=== PATIENT | female | born 1955 | race Caucasian/White ===

== ENCOUNTER 2018-07-09 16:54 | Emergency (ER) | payer OTHER ==
[~2018-07-09] VITALS: Ht 157.5 cm; Wt 114.0 kg
[~2018-07-09 16:54] MED LIST: AUGMENTIN 875875 MG PO; CIPRO250 M2 PO; KEFLEX500 MG PO; LASIX 40 MG TAB40 M2 PO; LOPRESSOR25 PO; METFORMIN HCL500 MG PO; NORVASC5 M1 PO; NOVOLOG100 UNIT/1 SUBQ; PRINZIDE 20-251 EACH PO; PROTONIX40 M1 PO; TRIAMCINOLONE A80 G2 TOP; ZOCOR20 MG PO; ZOFRAN ODT4 MG PO
[2018-07-09] MEDS ORDERED: AMARYL2 MG PO (17:06)
[2018-07-09] MEDS ORDERED: ZOCOR20 MG PO (17:07)
[2018-07-09] MEDS ORDERED: LANTUS100 UNIT/M SUBQ (17:08)
[2018-07-09] MEDS ORDERED: IBUPROFEN 800800 MG PO (18:25)
[2018-07-09 18:36] VITALS: BP 126/73
== END 2018-07-09 18:36 | disposition home or self-care (01) ==
LOC: M.ERS 16:54
DX: S70.01XA Contusion of right hip, initial encounter (principal); E78.00 Pure hypercholesterolemia, unspecified; I10 Essential (primary) hypertension; E11.9 Type 2 diabetes mellitus without complications; J44.9 Chronic obstructive pulmonary disease, unspecified; Z79.4 Long term (current) use of insulin; Z88.6 Allergy status to analgesic agent; Z88.1 Allergy status to other antibiotic agents; Z88.5 Allergy status to narcotic agent; W01.0XXA Fall on same level from slipping, tripping and stumbling without subsequent striking against object, initial encounter; Y93.89 Activity, other specified; Y92.89 Other specified places as the place of occurrence of the external cause; Y99.8 Other external cause status

== ENCOUNTER 2018-07-13 19:38 | Inpatient (IN) | payer OTHER ==
[~2018-07-13] VITALS: Ht 157.5 cm; Wt 114.8 kg
[~2018-07-13 19:38] MED LIST changes: +AMARYL2 MG PO; +IBUPROFEN 800800 MG PO; +LANTUS100 UNIT/M SUBQ
[2018-07-13 19:43] VITALS: BP 158/110
[2018-07-13 20:40] LABS: HEMATOCRIT 41.4 % (37.0-47.0); MCH 30.9 pg (26.0-34.0); MCHC 33.8 g/dL (28.0-37.0); MCV 91.3 fL (80.0-100.0); MPV 11.7 fl. (7.2-11.1); NUCLEATED RBCS 0 /100WBC; RBC 4.54 mil/uL (4.20-5.00); RDW-CV 13.3 % (10.5-14.5); WBC 7.5 thou/uL (4.0-11.0)
[2018-07-13 20:42] LABS: BE 5.3 mmol/L (-2 to +3); HCO3 30.2 mmol/L (22.0-26.0); PCO2 44.9 mmHg (35.0-45.0); PO2 102.1 mmHg (75.0-100.0); pH 7.445 (7.340-7.450)
[2018-07-13 20:46] LABS: ANION GAP 4 mmol/L (7-16); BUN 8 mg/dL (7-18); CALCIUM 8.9 mg/dL (8.5-10.1); CHLORIDE 97 mmol/L (98-107); CO2 35 mmol/L (21-32); CREATININE 0.7 mg/dL (0.6-1.3); GLUCOSE 183 mg/dL (70-99); POTASSIUM 3.3 mmol/L (3.5-5.1); SODIUM 136 mmol/L (136-145)
[2018-07-13 20:49] LABS: APTT 25.6 Seconds (25.0-31.3); INR 1.1
[2018-07-13 20:53] LABS: ALBUMIN 3.6 g/dL (3.4-5.0); ALKALINE PHOSPHATASE 56 U/L (46-116); MAGNESIUM 1.4 mg/dL (1.8-2.4); SGOT 27 U/L (15-37); SGPT 39 U/L (30-65); TOTAL BILIRUBIN 0.5 mg/dL (<0.1-1.0); TOTAL PROTEIN 7.5 g/dL (6.4-8.2); TROPONIN-I LEVEL <0.06 ng/mL (<0.06)
[2018-07-13 21:05] LABS: ABSOLUTE LYMPHOCYTES 0.7 thou/uL (0.8-5.3); ABSOLUTE MONOCYTES 0.4 thou/uL (0.0-1.2); ABSOLUTE NEUTROPHILS 6.5 thou/uL (1.6-8.1); ATYPICAL LYMPHS 2 %
[2018-07-13 21:06] LABS: ANISOCYTOSIS 1+; LARGE PLATELETS FEW; OVALOCYTES Occasional; PLATELET ESTIMATE DECREASED
[2018-07-13 21:08] LABS: PLATELET COUNT* 16 thou/uL (150-400); POLYCHROMASIA Occasional
[2018-07-13 21:31] LABS: URINE BILIRUBIN NEGATIVE (Negative); URINE BLOOD NEGATIVE (Negative); URINE CLARITY CLEAR; URINE COLOR YELLOW; URINE GLUCOSE-RANDOM NEGATIVE (Negative); URINE KETONES NEGATIVE (Negative); URINE LEUKOCYTES-REFLEX TRACE (Negative); URINE NITRITE-REFLEX NEGATIVE (Negative); URINE PROTEIN NEGATIVE (Negative); URINE UROBILINOGEN 0.2 E.U./dl (0.2-1.0)
[2018-07-13 21:38] LABS: HYALINE CASTS 0-3 Few /LPF (None Seen); SQUAMOUS >10 Many /LPF (0-3)
[2018-07-13 21:39] LABS: BACTERIA-REFLEX >30 Many /HPF (None Seen); CRYSTALS None Seen /LPF (None Seen); URINE RBC 0-2 Rare /HPF (0-2); URINE WBC-REFLEX 6-15 Few /HPF (0-5)
[2018-07-13 22:50] VITALS: BP 138/80
[2018-07-13 22:51] VITALS: BP 130/74
--- NOTE | 2018-07-13 23:30 | NUR ---
RECEIVED REPORT FROM SNUFF CONTAINER INSPECTOR MARY AT 9541. PT ARRIVED TO [facility] VIA CART AT 1475. DAUGHTER AT BEDSIDE. PT TRACING SINUS RHYTHM/SINUS TACHY ON CANVAS GOODS FABRICATOR. AFEBRILE, HOME MEDICATIONS VERIFIED AND RESTARTED BY DR. HORTON. INITIAL NEGATIVE SEPSIS SCREENING.
[2018-07-14 01:03] LABS: INFLUENZA A ANTIGEN None Detected (None Detect); INFLUENZA B ANTIGEN None Detected (None Detect)
[2018-07-14] MEDS ORDERED: ACCUNEB SO1.25 MG/1 INH (01:32)
--- NOTE | 2018-07-14 02:35 | NUR ---
AT 0150, PT TEMP 101.0 F ORAL, HR IN THE 120'S. POSITIVE SEPSIS SCREENING. DR. HORTON NOTIFIED AT 0206. NO NEW ORDERS RECEIVED AT THIS TIME. ACETAMINOPHEN ADMINSTERED PER EMAR. COOL WASHCLOTHS PROVIDED.
[2018-07-14 04:13] VITALS: BP 113/63
[2018-07-14 08:00] VITALS: BP 131/81
[2018-07-14 08:12] LABS: MAGNESIUM 1.6 mg/dL (1.8-2.4); POTASSIUM 3.7 mmol/L (3.5-5.1)
[2018-07-14 10:16] LABS: ABSOLUTE LYMPHOCYTES 0.8 thou/uL (0.8-5.3); ABSOLUTE MONOCYTES 0.6 thou/uL (0.0-1.2); BASOPHILS 0.2 %; HEMATOCRIT 38.2 % (37.0-47.0); LYMPHOCYTES 10.7 %; MCH 31.2 pg (26.0-34.0); MCV 91.8 fL (80.0-100.0); MONOCYTES 8.6 %; MPV 12.4 fl. (7.2-11.1); NUCLEATED RBCS 0 /100WBC; POLYS 80.5 %; RBC 4.16 mil/uL (4.20-5.00); RDW-CV 13.2 % (10.5-14.5); WBC 7.5 thou/uL (4.0-11.0)
[2018-07-14 10:19] LABS: PLATELET COUNT* 12 thou/uL (150-400)
[2018-07-14 12:00] VITALS: BP 156/86
--- NOTE | 2018-07-14 12:36 | EKG ---
[place] [address] ELECTROCARDIOGRAM REPORT Name: PERLITA SEBASTIAN Room: [address] ADM IN M.R.#: [id number] Admission: 07/13/18 Attend Phys: Nelida Alfred Discharge: Date of : 59 Report #: [id number] THIS REPORT FOR: //name// [facility] ED Test Date: 2018-07-13 Test Time: 20:21:30 Pat Name: PERLITA SEBASTIAN Department: Room: [facility] Gender: F Senior Water/Wastewater Engineer: Kwabena GARCIA : 1955 Requested By: Sharlene Fisher Order Number: [id number] MD: Elder Faye Measurements Intervals [place] Rate: 115 P: 58 [place]: 175 QRS: -43 QRSD: 97 T: 89 QT: 337 QTc: 466 Interpretive Statements Sinus tachycardia Abnormal R-wave progression, late transition Inferior infarct, old Baseline wander in lead(s) III,aVL,V3 No previous ECG available for comparison Electronically Signed On 07-14-2018 12:36:27 CDT by Elder Faye [email or web address] <ELECTRONICALLY SIGNED> By: Elder Faye MD, FACC 07/14/18 1236 20 20 Elder Faye MD, FAC /EPI
--- NOTE | 2018-07-14 12:37 | EKG ---
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: [facility] : 1955 Requested By: Yaquelin Redmond Order Number: [id number] Reading MD: Elder Faye Measurements Intervals [place] Rate: 123 P: 47 [place]: 122 QRS: -9 QRSD: 104 T: 89 QT: 342 QTc: 490 Interpretive Statements Sinus tachycardia Multiple ventricular premature complexes Low voltage, extremity leads Borderline prolonged QT interval No previous ECG available for comparison Electronically Signed On 07-14-2018 12:36:50 CDT by Elder Faye [email or web address] <ELECTRONICALLY SIGNED> By: Elder Faye MD, [facility] 07/14/18 1236 0133 0133 Elder Faye MD, [facility] /EPI
--- NOTE | 2018-07-14 15:57 | NUR ---
Pt is A&O. Pt was asleep when CM went to assess, CM spoke with Pt's dtr via phone. Resides at home with her . Pt is independent with ADLs, continues to cook and clean. Either Pt's dtr or drive. Pt has home o2 through [facility]. No hx of HH or SNF. Goal is home at dc, dtr wants Pt to have HH. Following.
[2018-07-14 16:00] VITALS: BP 119/77
--- NOTE | 2018-07-14 19:27 | NUR ---
RECEIVED REPORT. ASSUMED CARE OF PT AROUND 0730. PT A&O X4, VSS, O2 SAT >90% ON 3L PER NC. SECOND CRUSHER IN PLACE TRACING SR TO ST WITH NO CHANGES THIS SHIFT. PT BECAME LESS TACHYCARDIC SHIFT PROGRESSED. PT REMAINED AFEBRILE THIS SHIFT. AM ASSESSMENT AND VITALS COMPLETED CHARTED. PT REPORTED HEADACHE PAIN THIS SHIFT THAT WAS MANAGED WITH PO AND IV PAIN MEDICATION WITH FULL RELIEF. FAMILY AT BEDSIDE THROUGHOUT THE SHIFT. PT REPORTED FEELINGS OF URINARY RETENTION THIS AM. BLADDER SCANNED AFTER VOIDS THIS SHIFT, SEE CHARTING. PT STATED "I FEEL LIKE I'M EMPTYING MY BLADDER MORE" THIS EVENING. PT TOLERATING DIET. PT CURRENTLY RESTING IN BED. FALL PRECAUTIONS IN PLACE. CALL LIGHT IS WITHIN REACH. HOURLY ROUNDING PERFORMED.
[2018-07-14 20:00] VITALS: BP 105/64
[2018-07-15] VITALS (7 sets, daily range): BP systolic 105–143; BP diastolic 57–90
[2018-07-15 09:13] LABS: HEMOGLOBIN 12.8 gm/dL (12.0-15.0); MCH 30.7 pg (26.0-34.0); MCHC 33.7 g/dL (28.0-37.0); MCV 91.1 fL (80.0-100.0); MPV 11.7 fl. (7.2-11.1); RBC 4.17 mil/uL (4.20-5.00); RDW-CV 13.2 % (10.5-14.5); WBC 9.8 thou/uL (4.0-11.0)
[2018-07-15 09:21] LABS: ALBUMIN 3.3 g/dL (3.4-5.0); CALCIUM 8.5 mg/dL (8.5-10.1); CREATININE 0.6 mg/dL (0.6-1.3); POTASSIUM 3.6 mmol/L (3.5-5.1); TOTAL BILIRUBIN 0.4 mg/dL (<0.1-1.0); TOTAL PROTEIN 7.4 g/dL (6.4-8.2)
--- NOTE | 2018-07-15 11:55 | NUR ---
Initial referral sent to [facility], they are able to accept Pt. DC orders will need to be faxed to [facility] [phone]. Anticipate dc tomorrow
--- NOTE | 2018-07-15 19:46 | NUR ---
RECEIVED REPORT. ASSUMED CARE OF PT AROUND 0730. PT A&O X4. VSS. O2 SAT >90% ON 2-3L PER NC. RESULTS TECHNICIAN IN PLACE TRACING SR WITH NO CHANGES THIS SHIFT. AM ASSESSMENT AND VITALS COMPLETED CHARTED. LAB CALLED WITH CRITICAL PLATELET LEVEL THIS AM - PHYSICIAN NOTIFIED, ORDERS RECEIVED. PT RECEIVED 1 UNIT OF PLATELETS THIS SHIFT WITH NO ADVERSE REACTIONS. CBC ORDERED FOR TOMORROW MORNING. PT TOLERATING DIET. UP WITH SBA TO BATHROOM SEVERAL TIMES TO VOID, OUTPUT GOOD. PVR'S LESS THAN 200 THIS SHIFT. MEDS PER EMAR. PT TEARFUL THIS SHIFT DUE TO NOT BEING ABLE TO GO HOME TODAY AND CONCERN OVER HER MEDICAL CONDITION. REASSURANCE GIVEN. FAMILY AT BEDSIDE THROUGHOUT THE SHIFT. PT REPORTED HEADACHE THIS AM THAT WAS MANAGED WITH PO PAIN MEDICATION WITH RELEIF. BLOOD GLUCOSE LEVELS ELEVATED THIS SHIFT. SLIDING SCALE INSULIN ADVANCED TO VERY HIGH DOSE, DOCTOR NOTIFIED WELL, ADDITIONAL ORDERS PUT THROUGH. PT CURRENTLY WATCHING TV IN BED. FALL PRECAUTIONS IN PLACE. CALL LIGHT IS WITHIN REACH. HOURLY ROUNDING PERFORMED.
[2018-07-16] VITALS (7 sets, daily range): BP systolic 134–177; BP diastolic 75–94
[2018-07-16 05:12] LABS: HEMATOCRIT 35.1 % (37.0-47.0); HEMOGLOBIN 11.8 gm/dL (12.0-15.0); MCH 30.9 pg (26.0-34.0); MCHC 33.6 g/dL (28.0-37.0); MCV 91.8 fL (80.0-100.0); MPV 12.4 fl. (7.2-11.1); RBC 3.83 mil/uL (4.20-5.00); RDW-CV 13.6 % (10.5-14.5); WBC 12.2 thou/uL (4.0-11.0)
--- NOTE | 2018-07-16 05:49 | NUR ---
ASSUMED CARE OF PT AFTER REPORT AT 1930. PT A&OX4. VSS. PHYSICAL ASSESSMEMT COMPLETED AND CHARTED. PT ON O2 AT 2L NC WITH 95% O2 SAT. PT TRACING SRON TELE. PT SUPPOSED TO BE UP STANBY DUE TO HISTORY OF FALL BUT REFUSED TO BE ASSISTED AND TO TURN BED ALARM ON EVEN AFTER EDUCATION. PT PROMISED TO CALL IF SHE FEELS DIZZY OR LIGHTHEADEDNESS. PT COMPLAINED OF HEADACHE WITH PAIN SCALE OF 5/10-PAIN MEDS GIVEN PER MAR WITH PARTIAL RELIEF. PT ALSO COMPLAINED OF INDIGESTION-DR GARCIA INFORMED WITH NO NEW ORDER. AFTER A WHILE, PT CLAIMED HER STOMACH IS NOT UPSET ANYMORE.BLOOD SUGAR 408 MG/DL. INSULIN LISPRO SLIDING SCALE AND LANTUS GIVEN ORDERED. PHARMACY CALLED VERIFYING REGARDING INSULIN REGULAR 20 UNITS IV PUSH ONETIME. RECHECKED BLOOD SUGAR AT 0100. BLOOD SUGAR WENT DOWN TO 264 MG/DL. OPTICAL INSTRUMENTS SUPERVISOR LISA VERIFIED REGULAR INSULIN ORDERED TO DR HORTON. NO NEW ORDERS RECIEVED. WILL PASS THIS TO INCOMING SHIFT. RECHECKED BLOOD SUGAR AGAIN AT 0530.BLOOD SUGAR IS 262 MG/DL. CALL LIGHT WITHIN REACH. BED IN LOW POSITION.
--- NOTE | 2018-07-16 08:00 | NUR ---
RECIEVED REPORT. ASSUMED CARE OF PT AT 0730. VSS. CARDIAC MONTIORING IN PLACE SR. AM ASSESSMENT AND VITALS COMPLETED CHARTED. PT ALERT AND ORIENTED. PT ON 2L PER NC. PT REPORTS SHE WEARS O2 AT HOME. PT DENIES ANY COMPLAINTS OF PAIN OR DISCOMFORT THIS AM. PT REPORTS FEELING MUCH BETTER. IV SALINE LOCKED. PT SITTING UP IN BED. PT INFORMED OF PLAN OF CARE. CALL LIGHT IS WITHIN REACH. WILL CONTINUE TO MONTIOR FOR DURATION OF SHIFT.
--- NOTE | 2018-07-16 17:30 | NUR ---
VSS. CARDIAC MONTORING IN PLACE WITH NO CHANGES THIS SHIFT. PT REMAINS ON 2L PER NC. PT HAS COMPLAINTS OF ANXIETY AND HEADACHE ASSOCIATED WITH DECADRON DRIP. DRIP TEMPORARILY STOPPED AND IV BENADRYL GIVEN WITH RELIEF. DECADRON RESTARTED WITH NO ISSUES. PT'S PAIN WELL MANAGED WITH PO PAIN MEDS. PT IS UP AD DESTINEE. CALL LIGHT IS WITHIN REACH. WILL CONTINUE TO MONITOR FOR DUATION OF SHFIT.
[2018-07-17 00:50] VITALS: BP 167/86
[2018-07-17 04:00] VITALS: BP 144/86
[2018-07-17 04:43] LABS: ABSOLUTE LYMPHOCYTES 1.5 thou/uL (0.8-5.3); ABSOLUTE NEUTROPHILS 7.5 thou/uL (1.6-8.1); BASOPHILS 0.1 %; LYMPHOCYTES 15.4 %; MCH 30.7 pg (26.0-34.0); MCHC 33.4 g/dL (28.0-37.0); MCV 92.1 fL (80.0-100.0); MONOCYTES 9.6 %; MPV 9.9 fl. (7.2-11.1); NUCLEATED RBCS 0 /100WBC; POLYS 74.9 %; RBC 3.91 mil/uL (4.20-5.00); RDW-CV 13.5 % (10.5-14.5)
--- NOTE | 2018-07-17 04:55 | NUR ---
ASSUMED CARE OF PT AFTER REPORT AT 1930. PT A&OX4. VSS. PHYSICAL ASSESSMENT COMPLETED AND CHARTED. PT ON O2 AT 2L WITH 96% O2 SAT. PT TRACING SR/SB/PVCS ON TELE. PT SUPPOSED TO BE UP STANDBY DUE TO HX OF FALL BUT REFUSED TO BE ASISTED AND TO TURN BED ALARM ON EVEN AFTER EDUCATION WAS DONE. PT PROMISES TO CALL IF SHE FEELS DIZZY OR LIGHTHEADEDNESS. PT COMPLAINED OF HEADACHE WITH PAIN SCALE OF 5/10-DENIES ANY PAIN MEDS. HOURLY ROUNDING OBSERVED. CALL LIGHT WITHIN REACH. BED IN LOW POSITION. BED ALARM ON.
[2018-07-17 05:01] LABS: PLATELET COUNT* 34 thou/uL (150-400)
[2018-07-17 05:22] LABS: ALBUMIN 3.2 g/dL (3.4-5.0); CALCIUM 8.8 mg/dL (8.5-10.1); CREATININE 0.7 mg/dL (0.6-1.3); MAGNESIUM 1.9 mg/dL (1.8-2.4); POTASSIUM 3.4 mmol/L (3.5-5.1); TOTAL BILIRUBIN 0.2 mg/dL (<0.1-1.0); TOTAL PROTEIN 6.4 g/dL (6.4-8.2)
[2018-07-17 07:46] VITALS: BP 116/65
--- NOTE | 2018-07-17 08:00 | NUR ---
RECIEVED REPORT. ASSUMED CARE OF PT AT 0730. VSS. CARDIAC MONITORING IN PLACE SR. AM ASSESSMENT AND VITALS COMPLETED CHARTED. PT ALERT AND ORIETNED. PT ON 2L. IV SALINE LOCKED. PT DENIES ANY PAIN THIS AM. PT EMOTIONAL REGARDING OUTPATIENT FOLLOW UP. REASSURANCE GIVEN. PROVIDED PT WITH SCHEDULED FOLLOW UP APPOINTMENT WITH DR. VALVERDE 07/19/18 AT 0845. PT UP AD DESTINEE. CALL LIGHT IS WITHIN REACH. WILL CONTINUE TO MONITOR FOR DURATION OF SHIFT.
[2018-07-17 12:01] VITALS: BP 147/67
--- NOTE | 2018-07-17 17:08 | NUR ---
VSS. PT MADE MED-SURG STATUS. PT REMAINS ON 2L PER NC. IV SALINE LOCKED. PT HAS HAD NO COMPLAINTS OF PAIN OR DISCOMFORT THIS SHIFT. PT IS UP AD DESTINEE. PT PROGRESSING TOWARDS GOALS. PLAN TO HAVE LAST DECADRON TRANSFUSION AND DISCAHRGE IN AM. PT COMMUNICATE UNDERSTANDING. CALL LIGHT IS WITHIN REACH. WILL CONTINUE TO MONTIOR FOR DURAITON OF SHIFT.
[2018-07-17 20:20] VITALS: BP 141/79
[2018-07-18 04:55] LABS: HEMATOCRIT 35.5 % (37.0-47.0); MCHC 33.8 g/dL (28.0-37.0); MCV 91.8 fL (80.0-100.0); RBC 3.87 mil/uL (4.20-5.00); RDW-CV 13.4 % (10.5-14.5); WBC 10.8 thou/uL (4.0-11.0)
[2018-07-18 05:18] LABS: ALBUMIN 3.2 g/dL (3.4-5.0); CALCIUM 8.9 mg/dL (8.5-10.1); CREATININE 0.7 mg/dL (0.6-1.3); MAGNESIUM 1.8 mg/dL (1.8-2.4); POTASSIUM 3.8 mmol/L (3.5-5.1); TOTAL BILIRUBIN 0.2 mg/dL (<0.1-1.0); TOTAL PROTEIN 6.3 g/dL (6.4-8.2)
--- NOTE | 2018-07-18 05:54 | NUR ---
PT ALERT AND ORIENTED X4 ON 2L O2 VIA NC AND NOT ON CARDIAC MONITORING. PT STATES SHE IS FEELING BETTER AND IS READY TO BE DISCHARGED.
--- NOTE | 2018-07-18 06:04 | NUR ---
THIS RN AGREES WITH CHARTING AND ASSESSMENT OF [facility] STUDENT JM GIPSON.
[2018-07-18 08:07] VITALS: BP 157/81
--- NOTE | 2018-07-18 10:17 | NUR ---
ASSUMED CARE OF PT THIS AM AROUND 714- MS STATUS IN PLACE AND MAINTAINED- UPON ASSESSMENT PT NOTED TO BE SITTING UP ON SIDE OF BED, FAMILY AT SIDE VISITING- PT A&O X4-CONTINENT OF BOWEL AND BLADDER- UP AD-DESTINEE WITH STEADY GAIT NOTED-LCTA, RESP EVEN AND UN-LABORED- VSS, O2 SAT 98% ON 2L VIA NC- SOA WITH ACTIVITY NOTED- ABODME SOFT/OBESE/NON-TENDER, BS X4 QUADS- LAST BM REPORTED 07/17/18- IV NOTED TO RIGHT WRIST INTACT, IV ABT GIVEN THIS AM PRESCRIBED AND IV DEXMETHOSONE INFUSSING PRESCIBED, BENADRYL GIVEN PRIOR TO ADMINISTRATION REQUESTED- GOOD PO INTAKE NOTED THIS AM WITH BREAKFAST- BS MONITORED ORDERED, SSI AND SCHEDULED INSULIN GIVEN PRESCIBED-PT DENIES ANY C/O PAIN/DISCOMFORT AT THIS TIME- EXPRESSES WISHES TO TERRENCE D/C'D THIS SHIFT- CALL LIGHT AND PERSONLA BELONGINGS WITH IN REACH- PT MAKES NEEDS KNOWN, ALL NEEDS MET AT THIS TIME-WCTM
[2018-07-18] MEDS ORDERED: CEFDINIR300 MG PO (10:44)
--- NOTE | 2018-07-18 12:48 | NUR ---
Nutrition; Pt seen for high BMI, 46.3. Pt was just getting up to go to bathroom when I entered. was in room as well. Pt denied any nutrition concerns. Wt: 253#. Will defer further nutrition assessment.
--- NOTE | 2018-07-18 13:01 | CON ---
[address] [address] CONSULTATION Name: PERLITA SEBASTIAN Room: [address] IN M.R.#: [id number] Admission: 07/13/18 Attend Phys: Nelida Alfred Discharge: Date of : 59 Report #: [id number] THIS REPORT FOR: //name// CC: Brenda Redmond DATE OF SERVICE: 07/14/2018 PRIMARY CARE PHYSICIAN: Unknown. REASON FOR CONSULTATION: Thrombocytopenia. HISTORY OF PRESENT ILLNESS: The patient is a very pleasant 62-year-old female who gives a history of longstanding ITP diagnosed approximately 20 years ago. The patient used to follow with a local superintendent gas distribution on [place] who has since retired and has not seen a superintendent gas distribution for several years now. The patient says that her platelet count usually runs in the 20,000-30,000 range. The patient is admitted in the hospital currently with complaint of malaise, fatigue and fevers. The patient had a CBC done in the Emergency Room yesterday, which showed platelet count decreased at 16. Her WBC count was 7.5 and hemoglobin and hematocrit were 14.0 and 41.4 suggesting absence of any bleed. The patient's mean platelet volume was elevated at 12.4 today. Today, her CBC shows some decrease in her platelet count down to 12 overnight. Her WBC differential was within normal limits. Complete metabolic profile showed normal renal and hepatic function with total bilirubin level of 0.5. The patient's electrolytes were otherwise normal and troponin was negative x 1. The patient's urinalysis did show multiple bacteria and epithelial cells with leukocyte esterase positive as well and absence of any microscopic hematuria. Influenza type A and B were tested negative. PT and PTT were found to be normal at 11.0 and 25.6 respectively. Hematology was consulted for further evaluation and recommendations. The patient does not complain of any bleeding from the nose or gums or from any other body site. She also does not complain of any bruising or hematomas or any other signs of bleeding. She denies having any headaches, dizziness, nausea, vomiting, constipation, diarrhea, chest pain, palpitations, or other significant symptoms at this time. PAST MEDICAL HISTORY: 1. ITP. 2. CHF. 3. IDDM. 4. COPD. 5. Hypertension. 6. [place] [address] CONSULTATION Name: PERLITA SEBASTIAN Room: [address]#: [id number] Admission: 07/13/18 Attend Phys: Nelida Alfred Discharge: Date of : 59 Report #: [id number] PAST SURGICAL HISTORY: Hysterectomy several years ago. PERSONAL HISTORY: The patient quit smoking 10 years ago. She does not use alcohol or any other illicit drugs. FAMILY HISTORY: The patient's brother also has a history of ITP. She denies having any family history of cancers or other hematologic disorders. ALLERGIES: 1. MORPHINE 2. CODEINE. 3. ASPIRIN. 4. ERYTHROMYCIN. CURRENT MEDICATIONS: 1. Lipitor 20 mg p.o. every evening. 2. Insulin Humalog q.a.c. and at bedtime. 3. Ultram 50 mg p.o. q.4 hours as needed. 4. Solu-Medrol 62.5 mg q.8 hours IV push. 5. Rocephin 1 gram IV daily. 6. Lopressor 25 mg p.o. daily. 7. Lisinopril 20 mg p.o. daily. 8. Hydrochlorothiazide 25 mg p.o. daily. 9. Lasix 40 mg p.o. daily. 10. Norvasc 5 mg p.o. daily. 11. Metformin 500 mg p.o. b.i.d. 12. Insulin Lantus subcutaneously as directed. 13. Protonix 40 mg p.o. daily. 14. Glimepiride 2 mg p.o. daily. 15. Tylenol 650 mg p.o. q. 4 hours as needed. 16. Electrolyte replacements as needed. REVIEW OF SYSTEMS: A 13-point review of systems is obtained. These were negative for any findings except for those discussed in the HPI. PHYSICAL EXAMINATION: VITAL SIGNS: T-max 38.4 and current temperature 37.4, pulse was 108 beats per minute, respiratory rate was 18 breaths per minute, blood pressure 119/77 mmHg with pulse ox of 97% on 2 liters nasal cannula. GENERAL: Awake, alert, oriented x 3, no apparent distress. HEENT: EOMI/PERRL. LYMPHATIC: No lymphadenopathy in the neck or supraclavicular areas. CHEST: Clear bilaterally with no added sounds. CARDIOVASCULAR: Regular rate and rhythm without any murmurs. ABDOMEN: Soft, bowel sounds positive. Spleen palpable in the left upper [facility] [address] [place] [address] CONSULTATION Name: PERLITA SEBASTIAN Room: [address] IN [facility].#: [id number] Admission: 07/13/18 Attend Phys: Nelida Alfred Discharge: Date of : 59 Report #: [id number] quadrant measuring 4 fingerbreadths. MUSCULOSKELETAL: No significant arthropathy visible, gait not assessed. NEUROLOGIC: No evidence of any focal neurological deficit. INTEGUMENTARY: No evidence of rash or other skin changes. ASSESSMENT AND PLAN: The patient is a very pleasant 62-year-old female who has a history of longstanding idiopathic thrombocytopenic purpura for approximately 20-30 years. The patient gives a history of being previously treated with steroids, IVIG and rituximab. She was offered splenectomy on one occasion and she refused. She does not remember being treated with Nplate. I will plan to rule out any other causes of thrombocytopenia at this time including disseminated intravascular coagulation, which does not seem likely as her coags are normal. We will check fibrinogen level, however. I will also rule out hemolysis and will review her peripheral smear for evaluation of her red blood cells to rule out thrombotic microangiopathy. The patient also denies having started any new medications recently. The patient was started on Solu-Medrol in house, which I would recommend to continue. I would also recommend to keep her platelet count above 10,000 to decrease the risk of spontaneous intracranial hemorrhage. The patient will need outpatient followup with Hematology and possible options were discussed with her today. Thank you for allowing us to participate in care of this pleasant patient. <ELECTRONICALLY SIGNED> By: Edmund Scales MD 07/18/18 1301 1711 1256Syed Felipe Ta MD /nt
[2018-07-18 13:16] VITALS: BP 134/79
--- NOTE | 2018-07-18 14:10 | NUR ---
ORDERS RECIEVED THIS SHIFT PER FOR OKAY TO D/C AND TO VERIFY WITH DR HERNANDEZ IF PREDNISONE TAPER IS NEEDED- HERE AND STATES PT DOES NOT NEED TAPER AT TIME OF D/C AND PT IS TO F/U [facility] 07/19/18 AT 0900 SCHEDULED AND F/U LABS WILL BE DRAWN-DEX IV COMPLETED PRIOR TO D/C INDICATED- IV TO RIGHT HAND D/C'D PRIOR TO D/C- D/C TEACHING/EDUCATION PRIOR TO D/C WITH ALL QUESTIONS AND CONCERNS ADDRESSED PRIOR TO D/C- NEED F/U COMMNICATED WITH VERBAL UNDERSTANDING COMMUNICATED PER PT- WRITEN EDUCATION ALONG WITH SCRIPT PROVIDED TO PT PRIOR TO D/C- BELONGINGS PACKED AND ACCOUNTED FOR PER PT- PT ESCORTED PER TECH VIA W/C TO [facility] AT 1414- NO PROBLEMS TO NOTE AT TIME OF D/C
--- NOTE | 2018-07-18 14:57 | NUR ---
Pt discharged to home today, faxed dc orders to [facility] . Cm provided Pt with inhome care agency info for her
== END 2018-07-18 14:14 | disposition home health service (06) | DRG 813 ==
LOC: M.ERS 19:38 → M.TBA-ER 21:53 → M.2W 21:53
PROVIDERS: Family Medicine; Internal Medicine; Internal Medicine Hematology & Oncology; Personal Emergency Response Attendant; ADMIT Internal Medicine
PROC: 30233R1 Transfusion of Nonautologous Platelets into Peripheral Vein, Percutaneous Approach (ICD-10-PCS; principal; 2018-07-15)
DX: D69.3 Immune thrombocytopenic purpura (principal); N39.0 Urinary tract infection, site not specified; R65.10 Systemic inflammatory response syndrome (SIRS) of non-infectious origin without acute organ dysfunction; J44.9 Chronic obstructive pulmonary disease, unspecified; E11.9 Type 2 diabetes mellitus without complications; E78.00 Pure hypercholesterolemia, unspecified; I11.0 Hypertensive heart disease with heart failure; I50.9 Heart failure, unspecified; E83.42 Hypomagnesemia; E87.6 Hypokalemia; Z88.1 Allergy status to other antibiotic agents; Z88.8 Allergy status to other drugs, medicaments and biological substances; Z79.84 Long term (current) use of oral hypoglycemic drugs; Z79.4 Long term (current) use of insulin; Z79.899 Other long term (current) drug therapy; Z87.891 Personal history of nicotine dependence; Z90.710 Acquired absence of both cervix and uterus

== ENCOUNTER → 2018-07-19 | Outpatient (CLI) | payer OTHER ==
[~2018-07-19] MED LIST changes: +ACCUNEB SO1.25 MG/1 INH; +CEFDINIR300 MG PO
[2018-07-19 10:23] LABS: HEMATOCRIT 38.4 % (37.0-47.0); HEMOGLOBIN 12.8 gm/dL (12.0-15.0); MCH 30.4 pg (26.0-34.0); MCHC 33.2 g/dL (28.0-37.0); MCV 91.4 fL (80.0-100.0); MPV 11.5 fl. (7.2-11.1); NUCLEATED RBCS 0 /100WBC; RBC 4.21 mil/uL (4.20-5.00); RDW-CV 13.4 % (10.5-14.5); WBC 15.2 thou/uL (4.0-11.0)
[2018-07-19 10:35] LABS: PLATELET COUNT* 42 thou/uL (150-400)
[2018-07-19 10:58] LABS: ABSOLUTE LYMPHOCYTES 2.6 thou/uL (0.8-5.3); ABSOLUTE MONOCYTES 0.5 thou/uL (0.0-1.2); ABSOLUTE NEUTROPHILS 12.2 thou/uL (1.6-8.1); MYELOCYTES 1 %; PLATELET ESTIMATE DECREASED
[2018-07-19 10:59] LABS: ANISOCYTOSIS 1+; POIKILOCYTOSIS 1+
[2018-07-20 07:05] LABS: HEPATITIS B SURFACE AG Negative (Negative)
--- NOTE | 2018-07-24 21:22 | HEMONC ---
[address] [address] HEMATOLOGY ONCOLOGY NOTE Name: ROMULOPERLITA J Room: [facility]#: [id number] Admission: 07/19/18 Attend Phys: Edmund Scales MD Discharge: Date of : 59 Report #: [id number] THIS REPORT FOR: //name// CC: Brenda Scales DATE OF SERVICE: 07/19/2018 DIAGNOSIS: Immune thrombocytopenia. SUBJECTIVE: The patient presented today after she was discharged from the hospital. She finished 4 doses of 40 mg dexamethasone. Upon discharge, her platelet counts were 39. The patient is feeling significantly better during this point after she got discharged. She denies any epistaxis or gum bleed. She denies any diarrhea or black stool. No hematuria. She denies any red dots or skin changes. REVIEW OF SYSTEMS: All systems were reviewed, was negative except the above. PAST MEDICAL, SOCIAL AND FAMILY HISTORY: Unchanged from last visit. PHYSICAL EXAMINATION: VITAL SIGNS: Today, blood pressure is 146/73, pulse is 78, respirations 22, temperature is 97.5, saturation is 98%. GENERAL: The patient was sitting in chair. She was not in acute distress. LUNGS: Clear to auscultations bilaterally. HEART: Regular rate and rhythm. S1, S2 within normal limits. ABDOMEN: Soft, nontender, nondistended, bowel sounds positive. MEDICATIONS: List has been reviewed. LABORATORY DATA: On 07/18/2018, WBC 10.8, hemoglobin 12.0, platelets 39 yesterday. ASSESSMENT AND PLAN: A 62-year-old female who has been diagnosed with immune thrombocytopenia more than 20 years ago. She presented to the hospital with a platelet count of 12,000. She received 4 doses of dexamethasone. Her platelets upon discharge yesterday was 39. At this point, she denies any active bleeding. RECOMMENDATIONS: I would like to continue to monitor the platelets trend. We will check CBC today and also on 07/22/2018, if her platelet count remains above 30-40 thousand, we will continue to monitor. I [place] [address] HEMATOLOGY ONCOLOGY NOTE Name: PERLITA SEBASTIAN [id number] Admission: 07/19/18 Attend Phys: Edmund Scales MD Discharge: Date of : 59 Report #: [id number] case she had drop in her platelets and require treatments, the next step will be IVIG or rituximab. All questions have been answered. <ELECTRONICALLY SIGNED> By: Edmund Scales MD 07/24/18 2122 0940 0111Edmund Scales MD /nt
== END ==
LOC: M.RTH 04:49 → M.LAB 04:49 → M.RTH 09:00
PROVIDERS: Internal Medicine
DX: D69.3 Immune thrombocytopenic purpura (principal)

== ENCOUNTER → 2018-07-22 | Outpatient (CLI) | payer OTHER ==
[2018-07-22 14:25] LABS: ABSOLUTE EOSINOPHILS 0.3 thou/uL (0.0-0.7); ABSOLUTE MONOCYTES 0.8 thou/uL (0.0-1.2); ABSOLUTE NEUTROPHILS 9.1 thou/uL (1.6-8.1); BASOPHILS 0.3 %; EOSINOPHILS 2.6 %; HEMATOCRIT 41.6 % (37.0-47.0); HEMOGLOBIN 13.7 gm/dL (12.0-15.0); LYMPHOCYTES 22.6 %; MCH 30.5 pg (26.0-34.0); MCHC 32.8 g/dL (28.0-37.0); MCV 92.8 fL (80.0-100.0); MONOCYTES 6.1 %; MPV 15.6 fl. (7.2-11.1); NUCLEATED RBCS 0 /100WBC; PLATELET COUNT* 52 thou/uL (150-400); POLYS 68.4 %; RBC 4.49 mil/uL (4.20-5.00); RDW-CV 13.9 % (10.5-14.5); WBC 13.3 thou/uL (4.0-11.0)
[2018-07-22 15:00] LABS: HYPOCHROMASIA 1+
== END ==
LOC: M.LAB 13:54
PROVIDERS: Internal Medicine
DX: D69.3 Immune thrombocytopenic purpura (principal)

== ENCOUNTER → 2018-08-08 | Outpatient (CLI) | payer OTHER ==
[2018-08-08 15:52] LABS: HEMATOCRIT 38.2 % (37.0-47.0); HEMOGLOBIN 12.9 gm/dL (12.0-15.0); MCHC 33.8 g/dL (28.0-37.0); MCV 91.7 fL (80.0-100.0); RBC 4.17 mil/uL (4.20-5.00); RDW-CV 13.7 % (10.5-14.5); WBC 7.4 thou/uL (4.0-11.0)
[2018-08-08 16:30] LABS: MPV 15.5 fl. (7.2-11.1)
== END ==
LOC: M.LAB 15:42
PROVIDERS: Internal Medicine
DX: D69.3 Immune thrombocytopenic purpura (principal)

== ENCOUNTER → 2018-08-09 | Outpatient (CLI) | payer OTHER ==
--- NOTE | ~2018-08-09 | HEMONC ---
[address] [address] HEMATOLOGY ONCOLOGY NOTE Name: PERLITA SEBASTIAN [place] Room: [facility]#: [id number] Admission: 08/09/18 Attend Phys: Edmund Scales MD Discharge: Date of : 59 Report #: [id number] THIS REPORT FOR: //name// CC: Brenda Scales DATE OF SERVICE: 08/09/2018 DIAGNOSIS: Idiopathic thrombocytopenic purpura. SUBJECTIVE: The patient presented today as a followup after she received 4 doses of dexamethasone 40 mg back in the end of June. She has been feeling tired; however, her platelet count remained stable, ranging between 39-42-52, 36 yesterday. The patient denies any major bleed. She has a very tiny epistaxis since she has been having to wear oxygen 12/04. REVIEW OF SYSTEMS: All systems were reviewed. It was negative except the above. PAST MEDICAL HISTORY, SOCIAL HISTORY, FAMILY HISTORY: Unchanged from previous visit. PHYSICAL EXAMINATION: VITAL SIGNS: Today, blood pressure is 159/84, pulse is 77, respirations 24, temperature is 97.4, saturations 95% on 2 liters. GENERAL: The patient was sitting in chair, was not in acute distress. LUNGS: Clear to auscultations bilaterally. HEART: Regular rate and rhythm. S1, S2 within normal limits. ABDOMEN: Soft, nontender, nondistended. Bowel sounds positive. ASSESSMENT AND PLAN: A 62-year-old female, diagnosed with immune cytopenia more than 20 years ago. The patient received 4 doses of dexamethasone towards the end of June since her platelets were 12. So far, after 4 weeks, her platelets remain stable, most recently 36,000 with no major bleed. I do recommend to continue to monitor the patient at this point with no active treatment since her platelet count is above 30,000. We will check platelet count every 2 weeks x 4. Follow up in 6 weeks. By: 0949 1100Edmund Scales MD /ranjith
== END ==
LOC: M.RTH 03:16
DX: D69.3 Immune thrombocytopenic purpura (principal)

== ENCOUNTER → 2018-10-06 | Outpatient (CLI) | payer OTHER ==
[2018-10-06 11:27] LABS: ABSOLUTE EOSINOPHILS 0.1 thou/uL (0.0-0.7); ABSOLUTE LYMPHOCYTES 1.7 thou/uL (0.8-5.3); ABSOLUTE MONOCYTES 0.9 thou/uL (0.0-1.2); ABSOLUTE NEUTROPHILS 4.7 thou/uL (1.6-8.1); BASOPHILS 0.4 %; EOSINOPHILS 1.5 %; HEMATOCRIT 36.4 % (37.0-47.0); HEMOGLOBIN 12.3 gm/dL (12.0-15.0); LYMPHOCYTES 22.7 %; MCH 30.8 pg (26.0-34.0); MCHC 33.9 g/dL (28.0-37.0); MCV 90.8 fL (80.0-100.0); MONOCYTES 12.5 %; MPV 11.9 fl. (7.2-11.1); NUCLEATED RBCS 0 /100WBC; POLYS 62.9 %; RBC 4.01 mil/uL (4.20-5.00); RDW-CV 13.7 % (10.5-14.5); WBC 7.5 thou/uL (4.0-11.0)
[2018-10-06 11:41] LABS: PLATELET COUNT* 16 thou/uL (150-400)
== END ==
LOC: M.LAB 11:04
PROVIDERS: Internal Medicine
DX: D69.3 Immune thrombocytopenic purpura (principal)

== ENCOUNTER → 2018-10-11 | Outpatient (CLI) | payer OTHER ==
--- NOTE | ~2018-10-11 | HEMONC ---
[address] [address] HEMATOLOGY ONCOLOGY NOTE Name: PERLITA SEBASTIAN [place] Room: [facility]#: [id number] Admission: 10/11/18 Attend Phys: Edmund Scales MD Discharge: Date of : 59 Report #: [id number] THIS REPORT FOR: //name// CC: Brenda Scales DATE OF SERVICE: 10/11/2018 DIAGNOSIS: Refractory immune thrombocytopenia. SUBJECTIVE: The patient presented today as a follow up. In August, she had a platelet count of 26,000. She was given dexamethasone for 4 days; however, repeated platelet count came back as 16. The patient reported that she has a mild epistaxis. Otherwise, she denies any other symptoms. She was started on a new medication for diabetes, Trulicity. Otherwise, she denies any acute complaints. REVIEW OF SYSTEMS: All systems reviewed, was negative except as above. PAST MEDICAL, SOCIAL, AND FAMILY HISTORY: Unchanged from previous visit. PHYSICAL EXAMINATION: VITAL SIGNS TODAY: Blood pressure was 134/83, pulse was 87, respirations 24, temperature was 97.0, pulse was 98% on room air. GENERAL: The patient was sitting in chair, was not in acute distress. LUNGS: Clear to auscultations bilaterally. HEART: Regular rate and rhythm. S1, S2 within normal limits. ASSESSMENT AND PLAN: A 62-year-old female who has been diagnosed with persistent immune thrombocytopenia. At this point, the patient is not responding to dexamethasone anymore. We will move on and arrange for IVIG. I would like to repeat her platelet counts. After that if the patient does not have any good response to IVIG, the next step will be rituximab weekly for 4 doses. By: 1208 1311Edmund Scales MD /nt
== END ==
LOC: M.RTH 04:11
DX: D69.3 Immune thrombocytopenic purpura (principal)

== ENCOUNTER → 2018-10-13 | Outpatient (CLI) | payer OTHER ==
--- NOTE | 2018-10-13 10:00 | NUR ---
ASSUMED CARE OFPATINET FROM HOME. PT IS ALERT AND ORIENTATED, SHE HAS NO CO OF PAIN OR NAUSEA AT THIS TIME. SHE WAS EDUCATED ON PLAN OF CARE AND DISEASE PROCESS. SHE IS STEADY ON HER FEET AND UP AD DESTINEE TO THE BATHROOM. LUNCH WAS ORDERED, WILL CONTINUE TO MONITOR.
[2018-10-13 10:10] VITALS: BP 146/74
[2018-10-13 11:20] VITALS: BP 142/78
[2018-10-13 12:20] VITALS: BP 134/76
[2018-10-13 14:30] VITALS: BP 132/74
--- NOTE | 2018-10-13 15:22 | NUR ---
ARRIVED AMBULATORY. MADE SELF COMFORTABLE IN RECLINER. IV STARTED WITH OUT DIFFICULTY. STATEDHAS HAD IVIG IN PAST WITH NO REACTION. IVIG INFUSION COMPLETED AND TOLERATED WELL. DENIES QUESTIONS OR NEEDS AT DISCHARGE.
== END ==
LOC: M.INFUS 05:15
DX: D69.3 Immune thrombocytopenic purpura (principal)

== ENCOUNTER → 2018-10-17 | Outpatient (CLI) | payer OTHER ==
[2018-10-17 13:43] LABS: ABSOLUTE BASOPHILS 0.1 thou/uL (0.0-0.2); ABSOLUTE EOSINOPHILS 0.2 thou/uL (0.0-0.7); ABSOLUTE LYMPHOCYTES 2.7 thou/uL (0.8-5.3); ABSOLUTE MONOCYTES 0.5 thou/uL (0.0-1.2); ABSOLUTE NEUTROPHILS 6.6 thou/uL (1.6-8.1); BASOPHILS 0.6 %; EOSINOPHILS 1.8 %; HEMATOCRIT 39.4 % (37.0-47.0); HEMOGLOBIN 13.4 gm/dL (12.0-15.0); LYMPHOCYTES 26.6 %; MCH 30.7 pg (26.0-34.0); MCV 90.5 fL (80.0-100.0); MONOCYTES 5.3 %; MPV 15.1 fl. (7.2-11.1); NUCLEATED RBCS 0 /100WBC; POLYS 65.7 %; RBC 4.35 mil/uL (4.20-5.00); RDW-CV 14.2 % (10.5-14.5)
[2018-10-17 14:24] LABS: PLATELET COUNT* 61 thou/uL (150-400)
== END ==
LOC: M.LAB 13:22
PROVIDERS: Internal Medicine
DX: D69.3 Immune thrombocytopenic purpura (principal)

== ENCOUNTER → 2018-11-15 | Outpatient (CLI) | payer OTHER ==
--- NOTE | 2018-11-16 15:44 | HEMONC ---
[address] [address] HEMATOLOGY ONCOLOGY NOTE Name: SEBASTIANPERLITA AILIN Room: [facility] LalitoVern#: [id number] Admission: 11/15/18 Attend Phys: Edmund Scales MD Discharge: Date of : 59 Report #: [id number] THIS REPORT FOR: //name// CC: Brenda Nadia Scales DATE OF SERVICE: 11/15/2018 REASON FOR CONSULTATION: Refractory thrombocytopenia. SUBJECTIVE: The patient presented today as 6 weeks followup. I have been monitoring her platelet count. Last visit she received IVIG. Platelet count recovered to 61,000. However, in the last three weeks, it has been stable, ranging between 33,000-35,000. The patient denies any bleeding including epistaxis, gum bleed, hematuria or purpura. She continues to be on a B12 supplement. REVIEW OF SYSTEMS: All systems reviewed. It was negative except the above. PAST MEDICAL, SOCIAL, FAMILY HISTORY: Unchanged from previous visit. VITAL SIGNS: Today, blood pressure is 167/81, pulse is 77, respirations 24, temperature is 97.9, saturations 98% on room air. MEDICATIONS: List has been reviewed. PHYSICAL EXAMINATION: GENERAL: The patient was sitting in chair, was not in acute distress. LUNGS: Clear to auscultation bilaterally. HEART: Regular rate and rhythm. S1, S2 within normal limits. EXTREMITIES: +1 edema bilaterally. No purpura. LABORATORY DATA: Most recent labs on platelet count on 10/17/2018 was 61,000; 10/31/2018, [address]; 11/07/2018, 37,000; 11/14/2018, 35,000. ASSESSMENT AND PLAN: A 62-year-old female who has been diagnosed with refractory ITP. The patient treated with this dexamethasone and IVIG. She had modest response; however, at this point, her platelet count has been stabilized above 30,000. She does not have any active bleeding or purpura. RECOMMENDATIONS: I would like to continue to monitor the patient's platelet count periodically every 3 weeks and if platelet counts trend below 30,000, [place] [address] HEMATOLOGY ONCOLOGY NOTE Name: PERLITA SEBASTIAN [id number] Admission: 11/15/18 Attend Phys: Edmund Scales MD Discharge: Date of : 59 Report #: [id number] discussed with the patient the next treatment will be a pulse dose of steroids and rituximab. After that, we will consider Promacta or Nplate. <ELECTRONICALLY SIGNED> By: Edmund Scales MD 11/16/18 1544 1109 2311Edmund Scales MD /nt
== END ==
LOC: M.RTH 05:18
DX: D47.3 Essential (hemorrhagic) thrombocythemia (principal)

== ENCOUNTER → 2019-03-14 | Outpatient (CLI) | payer OTHER ==
--- NOTE | 2019-03-20 13:33 | HEMONC ---
[address] [address] HEMATOLOGY ONCOLOGY NOTE Name: SEBASTIANPERLITA AILIN [id number] Admission: 03/14/19 Attend Phys: Edmund Scales MD Discharge: Date of : 59 Report #: [id number] THIS REPORT FOR: //name// CC: Maribel Zuniga DO Edmund Scales DATE OF SERVICE: 03/14/2019 DIAGNOSIS: ITP. SUBJECTIVE: The patient presented today as a 3-month followup. She has been monitored by serial CBC every 3 weeks. The patient's platelet count has been stable since 10/2018, ranging between 33,000-36,000. Peripheral blood smear showed giant platelets. However, I discussed with the Heme tech, there was no evidence of clumping. Her hemoglobin and platelet counts continue to be within normal range. The patient denies any epistaxis or frequent gum bleed. There is no hematuria. No bruising or ecchymosis. REVIEW OF SYSTEMS: All systems were reviewed. It was negative except the above. PAST MEDICAL, SOCIAL, AND FAMILY HISTORY: Unchanged from previous visit. PHYSICAL EXAMINATION: VITAL SIGNS: Today, blood pressure is 148/84, pulse is 88, respirations 22, temperature is 97.4, sat is 98% on room air. GENERAL: The patient was sitting in chair, was not in acute distress. LUNGS: Clear to auscultation bilaterally. HEART: Regular rate and rhythm. S1, S2 within normal limits. ABDOMEN: Soft, nontender, nondistended, and bowel sounds positive. LABORATORY DATA: Today, WBC is 8.7, hemoglobin 13.3, platelets of 36. ASSESSMENT AND PLAN: A 63-year-old female, who has been diagnosed with immune thrombocytopenia (ITP). The patient previously received dexamethasone and IVIG. She had a moderate response. For the last 4 months, her platelet count has been ranging between 33,000-36,000 with no evidence of bleeding or purpura. At this point, I would like to continue to monitor the patient with a platelet count every 4 weeks. Also, we will repeat her CBC today with citrate and heparin. The plan was discussed with the patient. <ELECTRONICALLY SIGNED> By: Edmund Scales MD 03/20/19 1333 1041 2300Edmund Scales MD /nt
== END ==
LOC: M.RTH 05:47
DX: D69.3 Immune thrombocytopenic purpura (principal)

== ENCOUNTER → 2019-06-13 | Outpatient (CLI) | payer OTHER ==
--- NOTE | 2019-06-14 12:15 | HEMONC ---
[address] [address] HEMATOLOGY ONCOLOGY NOTE Name: PERLITA SEBASTIAN Room: [facility]#: [id number] Admission: 06/13/19 Attend Phys: Edmund Scales MD Discharge: Date of : 59 Report #: [id number] THIS REPORT FOR: //name// CC: Maribel Dutton CINDY GUNN DO Edmund Scales DATE OF SERVICE: 06/13/2019 DIAGNOSIS: Immune thrombocytopenia. SUBJECTIVE: The patient presented today as a 3 months' followup. She continues to feel the same with no acute complaints. She has a mild bruising which has not changed. Denies any petechiae. No epistaxis or gum bleed. The patient reported that she has been taking care of her who has been on palliative care to end-stage COPD. REVIEW OF SYSTEMS: All systems were reviewed. It was negative except the above. PAST MEDICAL HISTORY, SOCIAL HISTORY, AND FAMILY HISTORY: Unchanged from last visit. MEDICATIONS: List has been reviewed. PHYSICAL EXAMINATION: VITAL SIGNS: Today, blood pressure is 121/72, pulse 86, respirations 22, temperature is 97.8, sat is 98% on room air. GENERAL: The patient was sitting in chair, was not in acute distress. LUNGS: Decreased breathing sounds bilaterally. HEART: Regular rate and rhythm. S1, S2 within normal limits. ABDOMEN: Soft, nontender, nondistended, bowel sounds positive. EXTREMITIES: No edema, no cyanosis, no clubbing. LABORATORY DATA: On 06/05, WBC 8.2; hemoglobin 13.0; platelets are 40, back in April, it was 42. ASSESSMENT AND PLAN: A 63-year-old female who has been diagnosed with immune thrombocytopenia previously received dexamethasone and IVIG. She has a moderate response. So far, her platelet count has been hovering around 40,000. She does not have any active bleed. Due to trend of her numbers, I think the patient may benefit from rituximab infusion; however, the patient stated that at this point she has been taking care of her . [place] [address] HEMATOLOGY ONCOLOGY NOTE Name: PERLITA SEBASTIAN AILIN Room: [facility]#: [id number] Admission: 06/13/19 Attend Phys: Edmund Scales MD Discharge: Date of : 59 Report #: [id number] labs in 4 weeks. Once the patient is able to have a rituximab infusion, we will arrange that as an outpatient. Labs every 4 weeks. Follow up in 4 months. <ELECTRONICALLY SIGNED> By: Edmund Scales MD 06/14/19 1215 1006 1041Mobakari Scales MD /nt
== END ==
LOC: M.RTH 05:29
DX: D69.6 Thrombocytopenia, unspecified (principal)

== ENCOUNTER 2019-08-03 22:15 | Inpatient (IN) | payer OTHER ==
[~2019-08-03] VITALS: Ht 160 cm; Wt 116.5 kg
[2019-08-03 22:22] VITALS: BP 165/85
[2019-08-03] MEDS ORDERED: TRULICITY1.5 MG/0.5 SUBQ (22:32)
[2019-08-03 22:51] LABS: ABSOLUTE BASOPHILS 0.1 thou/uL (0.0-0.2); ABSOLUTE EOSINOPHILS 0.1 thou/uL (0.0-0.7); ABSOLUTE LYMPHOCYTES 1.1 thou/uL (0.8-5.3); ABSOLUTE MONOCYTES 1.4 thou/uL (0.0-1.2); ABSOLUTE NEUTROPHILS 11.4 thou/uL (1.6-8.1); BASOPHILS 0.5 %; EOSINOPHILS 0.4 %; HEMATOCRIT 39.2 % (37.0-47.0); HEMOGLOBIN 13.4 gm/dL (12.0-15.0); MCHC 34.1 g/dL (28.0-37.0); MCV 90.8 fL (80.0-100.0); MONOCYTES 9.7 %; MPV 11.4 fl. (7.2-11.1); NUCLEATED RBCS 0 /100WBC; POLYS 81.4 %; RBC 4.31 mil/uL (4.20-5.00); RDW-CV 14.6 % (10.5-14.5)
[2019-08-03 22:53] LABS: PLATELET COUNT* 20 thou/uL (150-400)
[2019-08-03 23:04] LABS: CALCIUM 9.2 mg/dL (8.5-10.1); CREATININE 0.7 mg/dL (0.6-1.3); POTASSIUM 3.9 mmol/L (3.5-5.1)
[2019-08-03 23:05] LABS: PROTIME 10.7 Seconds (9.20-11.50)
[2019-08-03 23:13] LABS: ALBUMIN 3.5 g/dL (3.4-5.0); TOTAL BILIRUBIN 0.7 mg/dL (<0.1-1.0); TOTAL PROTEIN 7.8 g/dL (6.4-8.2)
[2019-08-03 23:57] LABS: URINE BLOOD 2+ (Negative); URINE CLARITY CLEAR; URINE COLOR YELLOW; URINE GLUCOSE-RANDOM 1+ (Negative); URINE LEUKOCYTES-REFLEX NEGATIVE (Negative); URINE NITRITE-REFLEX NEGATIVE (Negative); URINE PROTEIN 3+ (Negative); URINE SPECIFIC GRAVITY 1.025 (1.005-1.030); URINE UROBILINOGEN 0.2 E.U./dl (0.2-1.0)
[2019-08-03 23:59] LABS: ICTOTEST (BILI CONFIRMATORY) Negative (Negative); URINE BILIRUBIN 1+ (Negative); URINE KETONES 3+ (Negative)
[2019-08-04 00:05] LABS: AMORPHOUS URATES Moderate /LPF (None Seen); BACTERIA-REFLEX >30 Many /HPF (None Seen); COARSE GRANULAR CASTS 0-3 Few /LPF (None Seen); FINE GRANULAR CASTS 0-3 Few /LPF (None Seen); MUCUS 4-6 Moderate strn/LPF (None Seen); SQUAMOUS 4-10 Moderate /LPF (0-3); URINE WBC-REFLEX 0-5 Rare /HPF (0-5)
[2019-08-04 03:26] VITALS: BP 166/84
[2019-08-04 05:35] LABS: HEMATOCRIT 38.2 % (37.0-47.0); HEMOGLOBIN 12.8 gm/dL (12.0-15.0); MCH 30.6 pg (26.0-34.0); MCHC 33.6 g/dL (28.0-37.0); MCV 91.1 fL (80.0-100.0); MPV 9.6 fl. (7.2-11.1); RBC 4.19 mil/uL (4.20-5.00); RDW-CV 14.6 % (10.5-14.5); WBC 11.7 thou/uL (4.0-11.0)
[2019-08-04 08:00] VITALS: BP 151/78
--- NOTE | 2019-08-04 10:42 | EKG ---
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 : 1955 Requested By: Berenice Ochoa Order Number: [id number] MD: Shashank Salazar Measurements Intervals [place] Rate: 155 P: 35 CA: 151 QRS: -31 QRSD: 99 T: 102 QT: 314 QTc: 505 Interpretive Statements atrial fibrillation artifact noted Multiform ventricular premature complexes Left axis deviation Anteroseptal infarct, age indeterminate Lateral leads are also involved Compared to ECG 07/14/2018 01:33:59 atrial fibrillation now noted Electronically Signed On 08-04-2019 10:41:45 B[employer] KILN TENDER by Shashank Salazar [email or web address] <ELECTRONICALLY SIGNED> By: Shashank Salazar MD, FACC 08/04/19 1041 2225 2225 Shashank Salazar MD, [facility] /EPI
[2019-08-04 20:00] VITALS: BP 175/84
[2019-08-04 23:50] VITALS: BP 167/73
[2019-08-05 04:11] VITALS: BP 175/76
[2019-08-05 08:00] VITALS: BP 179/82
--- NOTE | 2019-08-05 08:01 | CON ---
[address] [address] CONSULTATION Name: PERLITA SEBASTIAN Room: [address] IN M.R.#: [id number] Admission: 08/04/19 Attend Phys: Nelida Alfred Discharge: Date of : 59 Report #: [id number] THIS REPORT FOR: //name// CC: Brenda Redmond DATE OF SERVICE: 08/04/2019 INFECTIOUS DISEASE CONSULTATION ATTENDING PHYSICIAN: Yaquelin Redmond MD. REASON FOR EVALUATION: Pneumonitis. HISTORY OF PRESENT ILLNESS: Chart reviewed, patient examined. This is a 63-year-old female with known history of diabetes mellitus, also ITP greater than 20 years, she is on supplemental oxygen at 2 liters, although denies COPD, states she has asthma, who apparently has had a previous history of pneumonitis. She presented with complaints of shortness of breath. She did have somewhat productive cough of yellow sputum. It is not clear if she had fevers. She certainly had anorexia with decreased intake. She had significant GI related complaints. On evaluation, she was found to have fairly significant infiltrates associated bilateral lung mcclelland, question of a nodular lesion at the pleura. On questioning, she does admit to abdominal related mass that has been extensively worked up including through the [facility], it was felt deemed not to be a neoplastic process, has been followed on a regular basis with imaging to assess whether it is growing. She was started empirically on piperacillin, tazobactam, levofloxacin. Overall, she states she has improved and her normal at 2 liters nasal cannula oxygen has been increased to 4 liters to control her symptoms of dyspnea. ALLERGIES: MORPHINE, CODEINE, ASPIRIN, ERYTHROMYCIN. SHE MENTIONS CEPHALEXIN WELL. CURRENT MEDICATIONS: Include levofloxacin, insulin lispro, Zosyn, ipratropium and albuterol inhaler. PAST MEDICAL HISTORY: History of diabetes mellitus, hypertension, ITP, high cholesterol, she described asthma, history of migraines. SOCIAL HISTORY: Former smoker. No ethanol. No illicit drug use. FAMILY HISTORY: Noncontributory. REVIEW OF SYSTEMS: Otherwise unremarkable with the [place] [address] CONSULTATION Name: PERLITA SEBASTIAN Room: [address] IN [facility]#: [id number] Admission: 08/04/19 Attend Phys: Nelida Alfred Discharge: Date of : 59 Report #: [id number] PHYSICAL EXAMINATION: GENERAL: She appears chronically ill, although obese, undernourished. She is in moderate distress. She is generally lucid. VITAL SIGNS: Temperature 98, pulse 125, respirations 20, blood pressure 151/78, saturation is 94% on 4 liters. HEENT: Normocephalic. Extraocular muscles intact. Does have nasal cannula oxygen in place. NECK: Supple. LUNGS: A few coarse breath sounds and expiratory wheezes. HEART: Tachycardic, regular. I do not appreciate a murmur. ABDOMEN: Large pannus, difficult to ascertain discrete mass, not overtly tender. There are no peritoneal signs. GENITOURINARY AND RECTAL: Deferred. LABORATORY DATA: Blood cultures sterile thus far. Chest x-ray showed bilateral atelectasis and pneumonia, which is more prominent on the right than the left. CT confirmed this with no evidence of PE and extensive atelectasis and pneumonia in the right upper and right middle lobe, right hilar fullness and/or adenopathy likely related to pneumonia to a lesser extent the left lower lobe atelectasis and pneumonia with a 14 mm pleural based mass, hepatomegaly. CBC: White count 11.7, H and H 12.8 and 38.2, platelet count of 34 consistent with her ITP. Urinalysis: 0-5 white cells, greater than 30 bacteria. Electrolytes: Sodium 134, potassium 3.9, chloride 95, bicarbonate is 29, anion gap of 10, BUN and creatinine 10 and 0.7, glucose of 277. LFTs unremarkable. Albumin of 3.5, total protein of 7.8, estimated GFR 85. Troponin less than 0.06. Lactic acid 1.2. ASSESSMENT AND PLAN: Pneumonitis, complicated by worsening respiratory failure, is on supplemental oxygen at baseline; however, has increased now to 4 liters. She is not encephalopathic at this point, remains quite tenuous. We will continue broad-spectrum antimicrobial therapy empirically. Check urinary antigens, screen for MRSA and check sputum culture since she does over the course of next 24-48 hours. <ELECTRONICALLY SIGNED> By: Efra Mckeon MD 08/05/19 0801 1218 1241Erfa Mckeon MD /nt
[2019-08-05 12:51] VITALS: BP 157/84
[2019-08-05 15:58] VITALS: BP 149/72
[2019-08-05 20:00] VITALS: BP 157/85
[2019-08-06] VITALS: BP 135/66
[2019-08-06 02:10] LABS: IgA 248 mg/dL (87-352); IgG 822 mg/dL (700-1600); IgM 83 mg/dL (26-217)
[2019-08-06 03:48] VITALS: BP 173/74
[2019-08-06 04:58] LABS: HEMATOCRIT 31.5 % (37.0-47.0); MCH 31.1 pg (26.0-34.0); MCHC 33.7 g/dL (28.0-37.0); MCV 92.2 fL (80.0-100.0); MPV 10.3 fl. (7.2-11.1); NUCLEATED RBCS 0 /100WBC; RBC 3.41 mil/uL (4.20-5.00); RDW-CV 14.6 % (10.5-14.5); WBC 8.9 thou/uL (4.0-11.0)
[2019-08-06 06:03] LABS: HEMOGLOBIN 10.6 gm/dL (12.0-15.0); PLATELET COUNT* 26 thou/uL (150-400)
[2019-08-06 07:17] LABS: ABSOLUTE LYMPHOCYTES 0.3 thou/uL (0.8-5.3); ABSOLUTE MONOCYTES 0.5 thou/uL (0.0-1.2); ABSOLUTE NEUTROPHILS 8.1 thou/uL (1.6-8.1)
[2019-08-06 07:19] LABS: GIANT PLATELETS OCCASIONAL; LARGE PLATELETS MODERATE; PLATELET ESTIMATE DECREASED
[2019-08-06 07:20] LABS: TOXIC GRANULATION 2+
[2019-08-06 07:21] LABS: POLYCHROMASIA 1+
[2019-08-06 07:22] LABS: HYPOCHROMASIA 1+; MICROCYTES 1+
[2019-08-06 08:00] VITALS: BP 180/84
[2019-08-06 12:30] VITALS: BP 151/79
[2019-08-06 16:13] VITALS: BP 166/70
[2019-08-06 20:00] VITALS: BP 173/72
[2019-08-07 00:19] VITALS: BP 150/62
[2019-08-07 03:05] LABS: GLYCOHEMOGLOBIN (HGB A1C) 7.1 % (4.8-5.6)
[2019-08-07 04:14] LABS: HEMATOCRIT 35.2 % (37.0-47.0); HEMOGLOBIN 11.7 gm/dL (12.0-15.0); MCH 30.4 pg (26.0-34.0); MCHC 33.2 g/dL (28.0-37.0); MCV 91.5 fL (80.0-100.0); MPV 11.4 fl. (7.2-11.1); RBC 3.84 mil/uL (4.20-5.00); RDW-CV 15.2 % (10.5-14.5); WBC 11.6 thou/uL (4.0-11.0)
[2019-08-07 04:26] LABS: CALCIUM 8.6 mg/dL (8.5-10.1); CREATININE 0.7 mg/dL (0.6-1.3)
[2019-08-07 04:43] VITALS: BP 154/69
[2019-08-07 07:54] VITALS: BP 152/65
[2019-08-07] MEDS ORDERED: IPRAT-ALBUT 0.5-3 ML INH (10:19)
[2019-08-07] MEDS ORDERED: PREDNISONE 10 M10 M1 PO (10:19)
[2019-08-07] MEDS ORDERED: LEVAQUIN 750 M750 MG PO (10:19)
[2019-08-07] MEDS ORDERED: PULMICORT0.25 MG/2 INH (10:19)
[2019-08-07] MEDS ORDERED: NEBULIZER MISCELL (10:20)
[2019-08-07 11:30] VITALS: BP 152/65
[2019-08-07 11:42] VITALS: BP 152/65
[2019-08-07 11:51] VITALS: BP 150/72
--- NOTE | 2019-08-08 10:05 | CON ---
[address] [address] CONSULTATION Name: PERLITA SEBASTIAN Room: [address] IN M.R.#: [id number] Admission: 08/04/19 Attend Phys: Nelida Alfred Discharge: 08/07/19 Date of : 59 Report #: [id number] THIS REPORT FOR: //name// CC: Brenda Redmond REASON FOR CONSULTATION: Pulmonary infiltrate, respiratory failure. REFERRING PHYSICIAN: Yaquelin Redmond MD HISTORY OF PRESENT ILLNESS: This is a 63-year-old female patient who smoked for almost 15 years, but she quit a while ago. Also, there is a questionable history of asthma as a baseline. She had been on oxygen for at least 15 years. She is on 2 liters at baseline. She had according to recurrent hospitalization at [facility] and [facility] with recurrent pneumonia. Apparently, her last hospitalization was at [facility] in April where she was treated for pneumonia and she got better and she was feeling really well according to her close to baseline. A week ago, she started having symptoms of slowly increasing shortness of breath and she started having wheezes and cough. The cough is mostly dry, not producing any sputum. She did not have any fever or chills, but she had some malaise, fatigue and congestion; especially the fever for the last two days. Currently, she is on 6 liters oxygen. Overall, she is able to speak in full sentences, but she feels chest tightness. She does not have any cancer diagnosis. She told me a couple of years ago she had extensive workup for possible abdominal mass at [facility] and no cancer was found. She also has history of thrombocytopenia. She tells me she never had platelets more than 50,000 and sometimes she would require some steroids for that. She had a CT scan done at this facility that will be discussed below. ALLERGIES: ASPIRIN, CODEINE, ERYTHROMYCIN, AND MORPHINE. HOME MEDICATIONS: She is on metoprolol, lisinopril, hydrochlorothiazide, pantoprazole, glimepiride, amlodipine, albuterol inhaler and she has a nebulizer at home. She is on Lasix, insulin, and metformin. PAST MEDICAL HISTORY: Hyperlipidemia, chronic respiratory failure on home oxygen, questionable history of asthma, diabetes mellitus and ITP. FAMILY HISTORY: Reviewed with the patient and noncontributory. She tells me she takes care of her who has advanced stage COPD and he is almost bedridden. SOCIAL HISTORY: Smoked for 15 years, quit smoking long time ago. Does not drink alcohol[place] [address] CONSULTATION Name: PERLITA SEBASTIAN Room: [address] IN M.R.#: [id number] Admission: 08/04/19 Attend Phys: Nelida Alfred Discharge: 08/07/19 Date of : 59 Report #: [id number] PAST SURGICAL HISTORY: No previous chest surgeries. REVIEW OF SYSTEMS: GENERAL: She reported some fever in the last couple of days, but no chills. She has some generalized fatigue and tiredness. EYES: She has no visual changes, no blurring of vision, no red eye, no lacrimation. HEAD AND NECK: She denies any headache, hearing loss, or tinnitus. She denied any sinus congestion or nasal discharge. GASTROINTESTINAL: She reported no history of dysphagia. Sometimes, she would choke in throat, but no aspiration. She has no abdominal pain, no nausea and no vomiting at this point, although she told me she vomited once couple of days ago. CARDIOVASCULAR: She has no chest pain, no palpitation, no lower extremity edema. GENITOURINARY: She denied any dysuria, frequency, urgency, discharge, or burning urination. MUSCULOSKELETAL: She denies any joint pain, deformity or falls. ENDOCRINE: She denied any thyroid disease. HEMATOLOGIC: She has history of ITP, but no easy bruisability at this point. NEUROLOGIC: She had no numbness, no tingling, no weakness. All systems reviewed with the patient and negatives as mentioned above. PHYSICAL EXAMINATION: VITAL SIGNS: She is on 6 liters oxygen during my visit with saturation more than 90%, blood pressure 151/78, breathing 20 times a minute, pulse rate of 111, temperature 36.7. GENERAL: Overweight lady, not in distress, speaks in full sentences, although she is on 6 liters oxygen. HEENT: Head is normocephalic, atraumatic. Pupils are reactive to light. Not pale, no jaundice, externally looks normal. Oral cavity shows moist mucous membranes. Wears dentures. Nasal cavity shows patent passages. Trachea is central. NECK: Full range of movement. No palpable lymph node. CHEST: Diminished air movement bilaterally with rhonchi and wheezes heard bilaterally. No tenderness to chest palpation. HEART: S1 and S2, no murmur. ABDOMEN: Benign, soft, lax, nontender, obese. EXTREMITIES: Lower extremities showed trace edema, no calf tenderness. SKIN: Normal for age and race, no rash, dry. PSYCHIATRIC: Mood and affect appropriate. Good insight and judgment. MUSCULOSKELETAL: No deformities. NEUROLOGIC: No focal weakness. Cranial nerves grossly normal. LABORATORY DATA: Her white blood count 14, hemoglobin 13.4, platelets 20,000[place] [address] CONSULTATION Name: PERLITA SEBASTIAN Room: [address] IN M.R.#: [id number] Admission: 08/04/19 Attend Phys: Nelida Alfred Discharge: 08/07/19 Date of : 59 Report #: [id number] Her creatinine is 0.70, sodium 134, potassium 3.9, chloride 95. BNP not elevated. Her INR is 1. IMAGING: She had a chest x-ray that was done in the ER showed bilateral infiltrate, more on the right than the left. A CT of the chest did not show pulmonary embolus, but showed extensive infiltrates bilaterally with some associated atelectasis, more on the right than the left with some lymphadenopathy and area of round infiltrate in the left lower lobe. IMPRESSION: 1. Acute on chronic hypoxic respiratory failure. 2. Bronchospasm. 3. Chronic obstructive pulmonary disease/asthma overlap. 4. Suspect viral illness. 5. Pneumonia. 6. Pulmonary infiltrate. 7. Pulmonary nodule. The patient with chronic lung disease; I suspect she has COPD/asthma overlap with recurrent pneumonia. According to the patient, currently she had extensive bilateral infiltrate. Clinical picture is consistent with pneumonia. I agree with treating the patient with antibiotics. She will be on levofloxacin and Zosyn. If we are able, we will get sputum sample. Continue scheduled nebulization treatments. I am going to start her on steroids because of the bronchospasm. Her platelets are low because of idiopathic thrombocytopenia (ITP). I did discuss with the patient the finding of the CT chest likely representing pneumonia, although a mass cannot be ruled out. At this point, she is a poor candidate for any intervention given the low platelets and likely she will be a poor candidate for biopsy down the road. However, at least at minimum, I would recommend a followup CT scan in 2-3 months to establish resolution of the infiltrate. I am going to get records from [facility] and [facility] to compare her images with the current image and will make further recommendation accordingly. Discussed with the patient. Thank you for the consult. <ELECTRONICALLY SIGNED> By: Nury Cervantes MD 08/08/19 1005 1603 [id number] Cervantes MD /nt
[2019-08-09 12:10] LABS: IgE 6 IU/mL (6-495)
--- NOTE | 2019-08-09 22:29 | CON ---
[address] [address] CONSULTATION Name: PERLITA SEBASTIAN Room: [address] IN M.R.#: [id number] Admission: 08/04/19 Attend Phys: Nelida Alfred Discharge: 08/07/19 Date of : 59 Report #: [id number] THIS REPORT FOR: //name// CC: Brenda Nadia Redmond DATE OF SERVICE: 08/04/2019 REASON FOR CONSULTATION: Lung nodule. SUBJECTIVE: The patient is a 63-year-old female who has been followed due to immune thrombocytopenia. The patient was admitted today because of shortness of breath. She previously in April was admitted because of pneumonia. The patient reported fatigue, cough and subjective fevers. She was seen at the Emergency Room and CT angiogram showed finding suggestive of atelectasis, pneumonia in the right upper and middle lobe with hilar fullness or adenopathy likely related to pneumonia. The patient was found to have left lower lung 14 mm pleural based soft tissue area, recommended followup. The patient has been a heavy smoker. REVIEW OF SYSTEMS: All systems reviewed. It was negative except the above. PAST MEDICAL HISTORY: Immunothrombocytopenia, diabetes mellitus, hypertension, dyslipidemia, asthma. MEDICATIONS: Per admission list. ALLERGIES: MORPHINE, CODEINE, ASPIRIN, ERYTHROMYCIN BASE. SOCIAL HISTORY: The patient has been an ex-smoker. She quit more than 1 year ago. No alcohol or drug abuse. PHYSICAL EXAMINATION: VITAL SIGNS: Today, temperature is 36.7, pulse is 125, respirations are 20, blood pressure is 151/78, SpO2 was 94% on 4 liters. GENERAL: The patient was lying in bed. She was not in acute distress. LUNGS: Clear to auscultations bilaterally. HEART: Tachy, but regular. S1, S2 within normal limits. ABDOMEN: Soft, nontender, nondistended, bowel sounds positive. EXTREMITIES: +2 edema bilaterally. LABORATORY DATA: Today, WBC 11.7, hemoglobin 12.8 and platelets 34. PT 10.7, creatinine 0.7, total bilirubin 0.7. ASSESSMENT AND PLAN: A 63-year-old female who has been treated for immunothrombocytopenia. Her platelet count has been [place] [address] CONSULTATION Name: PERLITA SEBASTIAN Room: [address]#: [id number] Admission: 08/04/19 Attend Phys: Nelida Alfred Discharge: 08/07/19 Date of : 59 Report #: [id number] baseline between 30 and 40 and she has been a heavy smoker. She was admitted and CT scan showed a 14 mm nodule; however, there was extensive atelectasis, pneumonia. RECOMMENDATIONS: I would like to wait at least for 2-3 weeks until her full course of pneumonia treatment will be finished, then we will arrange for a PET/CT scan as an outpatient to evaluate a solid nodule. <ELECTRONICALLY SIGNED> By: Edmund Scales MD 08/09/19 2229 1505 2322Mobakari Scales MD /nt
== END 2019-08-07 13:55 | disposition home health service (06) | DRG 871 ==
LOC: M.ERS 22:15 → M.2W 08-04 01:58 → M.TBA-ER 08-04 01:58 → M.2W 08-04 03:13
PROVIDERS: Emergency Medicine; Family Medicine; Internal Medicine Pulmonary Disease; ADMIT Internal Medicine
PROC: 30233R1 Transfusion of Nonautologous Platelets into Peripheral Vein, Percutaneous Approach (ICD-10-PCS; principal; 2019-08-04)
DX: A41.9 Sepsis, unspecified organism (principal); J96.21 Acute and chronic respiratory failure with hypoxia; J15.6 Pneumonia due to other Gram-negative bacteria; D69.3 Immune thrombocytopenic purpura; J44.0 Chronic obstructive pulmonary disease with (acute) lower respiratory infection; E11.9 Type 2 diabetes mellitus without complications; E78.00 Pure hypercholesterolemia, unspecified; I10 Essential (primary) hypertension; D69.6 Thrombocytopenia, unspecified; G43.909 Migraine, unspecified, not intractable, without status migrainosus; J45.909 Unspecified asthma, uncomplicated; R91.1 Solitary pulmonary nodule; E11.65 Type 2 diabetes mellitus with hyperglycemia; K76.0 Fatty (change of) liver, not elsewhere classified; T38.0X5A Adverse effect of glucocorticoids and synthetic analogues, initial encounter; Y92.89 Other specified places as the place of occurrence of the external cause; Z79.4 Long term (current) use of insulin; Z88.6 Allergy status to analgesic agent; Z88.1 Allergy status to other antibiotic agents; Z87.891 Personal history of nicotine dependence

== ENCOUNTER → 2021-07-07 | Outpatient (CLI) | payer OTHER ==
[~2021-07-07] MED LIST changes: +IPRAT-ALBUT 0.5-3 ML INH; +LEVAQUIN 750 M750 MG PO; +NEBULIZER MISCELL; +PREDNISONE 10 M10 M1 PO; +PULMICORT0.25 MG/2 INH; +TRULICITY1.5 MG/0.5 SUBQ
== END ==
LOC: M.ULTRA 10:30
PROVIDERS: ATTEND Nurse Practitioner Family
DX: R60.0 Localized edema (principal)